=== PATIENT | female | born 1965 | race Hispanic/Latino ===

== ENCOUNTER 2016-09-29 20:03 | Emergency (ER) | payer OTHER ==
[2016-09-29] MEDS ORDERED: TYLENOL ONE (20:26)
[2016-09-29] MEDS ORDERED: TYLENOL PO ONE (20:31)
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
[2016-09-30] MEDS ORDERED: TORADOL IM ONE (00:40)
[2016-09-30 02:40] VITALS: BP 119/76
--- NOTE | 2016-09-30 07:40 | XRay Report ---
AP CHEST: HISTORY: chest pain AP view of the chest demonstrates a normal mediastinal and cardiac contour with clear lungs and normal bony and soft tissue structures. IMPRESSION: Unremarkable AP chest.
--- NOTE | 2016-09-30 07:42 | XRay Report ---
RIGHT HAND, 2 VIEWS History: Pain. Findings: There is a nondisplaced, linear lucency through the shaft of the fifth metacarpal. This probably represents a nutrient canal. This point tenderness is present, a nondisplaced fracture could be considered. The remaining bony structures and joint spaces are within normal limits. Mild soft tissue swelling. Impression: Questionable abnormality of the fifth metacarpal, see above.
--- NOTE | 2016-09-30 07:44 | XRay Report ---
RIGHT FOOT, 2 VIEWS History: Pain. Findings: No comparison. There is a transverse fracture line through the base of the fifth metatarsal. This fracture line appears corticated. There is no convincing overlying soft tissue swelling. This may represent a chronic ununited fracture. Please correlate with the patient. The remaining bony structures are within normal limits. No erosive joint pathology. No tiny plantar spur. Impression: Traumatic fracture, fifth metatarsal base. It is unclear if this represents an acute fracture or a chronic ununited fracture. I suspect this could be chronic.
== END 2016-09-30 02:39 | disposition home or self-care (01) ==
LOC: ED 20:03
DX: S60.221A Contusion of right hand, initial encounter (principal); S20.219A Contusion of unspecified front wall of thorax, initial encounter; S92.354G Nondisplaced fracture of fifth metatarsal bone, right foot, subsequent encounter for fracture with delayed healing; E11.9 Type 2 diabetes mellitus without complications; R56.9 Unspecified convulsions; V43.52XA Car driver injured in collision with other type car in traffic accident, initial encounter; Y92.488 Other paved roadways as the place of occurrence of the external cause; Y93.89 Activity, other specified; Y99.8 Other external cause status
CPT/HCPCS: 71010; 73120; 73620; 93005; 93010; 96372; 99283; J1885